=== PATIENT | male | born 1990 | race Two or more races ===

== ENCOUNTER 2016-05-15 07:38 | Emergency (ER) | payer SELFPAY ==
[~2016-05-15] VITALS: Ht 167.6 cm; Wt 70.3 kg
--- NOTE | 2016-05-15 07:54 | Emergency Room Report ---
History of Present Illness General Chief Complaint: Laceration Source: Patient Present Illness HPI Patient presents with laceration at the left wrist. He was removing an air conditioning unit. The sharp metal edge sliced into his left wrist. Bleeding was controlled with local pressure immediately. He does complain about some unusual feeling in his palm. He does have good range of motion. He complains about 2/10 and which is sharp and burning. His last tetanus was 5 years ago. He is right-handed and works installing air conditioning. Denies fevers chills diabetes nausea vomiting diarrhea dysuria abdominal pain chest pain shortness of breath. Allergies: Coded Allergies: No Known Allergies (Unverified , 05/15/16) Patient History Past Medical History: see triage record Social History Narrative Patient was born in [facility] but raised in [place]. Reviewed Nursing Documentation: PMH: Agreed, PSxH: Agreed Nursing Documentation-PMH Past Medical History: No Stated History Review of Systems Constitutional: Denies: fever Musculoskeletal: Reports: see HPI Skin: Reports: see HPI Neurological: Reports: see HPI Hematologic/Lymphatic: Reports: see HPI All Other Systems: negative except mentioned in HPI Physical Exam Vital Signs Date Time Temp Pulse Resp B/P Pulse Ox O2 Delivery O2 Flow Rate FiO2 05/15/16 07:42 97.3 80 18 156/85 98 Room Air Sp02 EP Interpretation: reviewed, normal General Appearance: well appearing, no apparent distress, GCS 15 Head: normocephalic, atraumatic Eyes: bilateral eye normal inspection ENT: hearing grossly normal, normal voice, moist mucus membranes Neck: full range of motion, supple Respiratory: no respiratory distress, speaking full sentences Cardiovascular #2: 2+ radial (L) - good capillary fill digits Musculoskeletal: digits/nails normal, gait/station normal, normal range of motion - profundus and superficialis tendons intact. Wrist flexors intact. Neurologic: alert, motor strength/tone normal, sensory deficit - just distal to laceration - palmar surface Psychiatric: mood/affect normal Skin: laceration - 3.5 cm at base of palm Procedures Laceration/Wound Repair Laceration/Wound Repair : Consent: Verbal Wound Location: upper extremity - L wrist Wound Length (cm): 3 - 3.5 Irrigated w/ Saline (ccs): 30 Betadine Prep?: Yes Anesthesia: 1% Lidocaine Wound Debrided: none Wound Repaired With: sutures Suture Size/Type: 5:0, nylon Layer Closure?: No Sterile Dressing Applied?: Yes Splint Applied?: No Sling Applied?: No Patient Tolerated: Well Complications: None Medical Decision Making Diagnostic Impression: Primary Impression: Laceration of wrist, left Qualified Codes: S61.512A - Laceration without foreign body of left wrist, initial encounter ER Course Patient presents with a left wrist laceration. There is local nerve involvement however no tendon or major nerve has been lacerated. The patient needs sutures. His last tetanus was 5 years ago. The patient underwent suture repair and tolerated this well. He was given instructions regarding his work and also when to return for suture removal. The patient is stable for outpatient observation and treatment. Last Vital Signs Date Time Temp Pulse Resp B/P Pulse Ox O2 Delivery O2 Flow Rate FiO2 05/15/16 08:24 98.4 63 14 144/90 98 Room Air Status: improved Disposition: HOME, SELF-CARE Condition: Improved Scripts Bacitracin (Bacitracin) 28.4 Gm Oint...g. 1 APPLIC TOPIC BID, #10 GM Prov: Lenard Raymond M.D. 05/15/16 Lenard Raymond M.D. May 15, 2016 07:54
[2016-05-15] MEDS ORDERED: Bacitracin Oint UD TOPIC ONE (08:00)
[2016-05-15] MEDS ORDERED: BACITRACIN15 GM TOPIC (08:17)
[2016-05-15 08:20] VITALS: BP 144/90
[2016-05-15 08:24] VITALS: BP 144/90
== END 2016-05-15 08:24 | disposition home or self-care (01) ==
LOC: EMR 08:09
DX: S61.512A Laceration without foreign body of left wrist, initial encounter (principal); W26.8XXA Contact with other sharp object(s), not elsewhere classified, initial encounter; Y93.9 Activity, unspecified; Y99.0 Civilian activity done for income or pay